=== PATIENT | female | born 1975 | race Hispanic/Latino ===

== ENCOUNTER 2025-01-09 22:30 | Emergency (ER) | payer SELFPAY ==
--- NOTE | ~2025-01-09 | XR_ITS ---
Examination: XR chest 2V Clinical History: chest pain, sob Comparison: None Technique: PA and Lateral Findings: Cardiomediastinal silhouette normal size and configuration. Lungs clear. No acute bony abnormality. Small hiatal hernia. IMPRESSION: 1. No acute cardiopulmonary findings. Reviewed, dictated and finalized at location R.
[2025-01-09 22:34] VITALS: BP 149/90; PULSE 75; RESP 20; TEMP 36.6; O2SAT 94
--- NOTE | 2025-01-09 22:42 | ECG_ITS ---
Test Date: 2025-01-09 22:43:14 Measurements Intervals [place] Rate: 65 P: 22 [place]: 161 QRS: 1 QRSD: 101 T: 7 QT: 398 QTc: 416 Interpretive Statements SINUS RHYTHM CONSIDER INFERIOR INFARCT, AGE INDETERMINATE ABNORMAL ECG No previous ECG available for comparison Electronically Signed On 01-10-2025 05:12:01 CDT by Neymar Allred D.O.
[2025-01-09 22:58] LABS: Hematocrit 40.4 % (37.0-47.0); Hemoglobin 13.6 g/dL (12.0-15.0); Immature Granulocyte Percent A 0.8 % (0-0.5); Lymphocytes Absolute Auto 3.55 K/mm3 (0.9-3.2); Mean Corpuscular HGB Conc 33.7 g/dl (32-36); Mean Corpuscular Hemoglobin 30.6 pg (26-34); Mean Corpuscular Volume 90.8 fl (80-100); Nucleated Red Blood Cells Absolute Auto 0.000 K/mm3 (0.0-0.012); Nucleated Red Blood Cells Perc 0.0 % (0.0-0.2); Platelet Count Result 267 k/mm3 (150-375); Red Blood Count 4.45 M/mm3 (4.2-5.4); White Blood Count 10.9 K/mm3 (4.5-10.0)
[2025-01-09 23:09] LABS: INR 0.9; Prothrombin Time 12.5 Seconds (11.1-14.7)
[2025-01-09 23:10] LABS: Partial Thromboplastin Time 29.4 Seconds (22.3-36.8)
[2025-01-09 23:15] LABS: Alanine Aminotransferase 36 U/L (6-35); Albumin Level 4.5 g/dL (3.5-5.1); Alkaline Phosphatase 85 U/L (38-126); Anion Gap 8 mmol/L (4-12); Aspartate Amino Transferase 50 U/L (14-36); Bilirubin,Total 0.4 mg/dL (0.2-1.3); Blood Urea Nitrogen 14 mg/dL (7-17); Calcium 9.2 mg/dL (8.4-10.2); Carbon Dioxide 23 mmol/L (22-30); Chloride 105 mmol/L (98-107); Estimated CRCL calculation 100 ml/min; Estimated Glomerular Filt Rate > 60; Glucose 100 mg/dL (65-110); Lipase 118 U/L (23-300); Potassium 3.8 mmol/L (3.4-5.0); Sodium 136 mmol/L (137-145); Total Protein 8.0 g/dL (6.3-8.2)
[2025-01-09 23:22] LABS: Troponin I 0.016 ng/mL (0.000-0.034)
[2025-01-10 02:42] VITALS: BP 118/69; PULSE 69; RESP 16
--- NOTE | 2025-01-10 04:39 | ED.CHESTPAIN ---
HPI - Chest Pain General Chief Complaint: Chest Pain Stated Complaint: chest pain radiating to left side, SOB Time Seen by Provider: 01/10/25 04:19 Source: patient Mode of arrival: ambulatory Limitations: language barrier ([place] as 2nd language, [place] -speaking; although easily communications in kyrgyz) History of Present Illness HPI narrative: Patient presents with report of chest pain in particular left-sided chest pain report of pain at her upper ribs. She does not have a primary care physician. She has been short of breath with this. She states this has been present for the past 2-3 weeks although seems to be worsening over past 3 days. She has increased pain with palpation and describes it as a pressure, 5/10 in severity. No cough. No fevers or chills. Denies any underlying respiratory or cardiac issues and has never seen a food and beverage server. Denies any edema. Denies anticoagulation. Patient does report that her symptoms started around the time that she was having sex with her and his body was on hers and put pressure at this area. She has not wanted to have sex with him again since due to this. Cardiac risk factors HTN: 0 HLD: Yes (had been on medicine but Then reports that when it was checked again it was normal so because of this she stops taking this medication anymore) DM: 0 Obese: Yes Smoker:0 Personal history NM/TIA/CVA: 0 Fam Hx NM in first degree relative <65yo:0 Related Data Allergies Allergy/AdvReac Type Severity Reaction Status Date / Time No Known Allergies Allergy Verified 01/09/25 22:37 PMFSH Past Medical History Medical History Obesity Hyperlipidemia Social History Social History Social History: Smoking status: Never smoker Living arrangements: with family Additional living arrangements comments: Exam Narrative: GENERAL: Well-appearing, well-nourished, and in no acute distress. HEAD: Normocephalic, atraumatic. EYES: Non injected, non icteric ENT: Nares clear, no rhinorrhea or epistaxis. Gross auditory acuity intact. NECK: Supple. No meningismus. CHEST: Speaking in full sentences. No respiratory distress. Lungs clear to auscultation without absent or diminished breath sounds particularly on the left. No wheezes or crackles. Patient has reproducible TTP particularly at the junction between left sternum and upper ribs. Otherwise without any obvious bony deformity, subcutaneous emphysema/crepitus HEART: Regular rate and rhythm. . ABDOMEN: Soft, nondistended. EXTREMITIES: Normal range of motion. No bilateral lower extremity edema. SKIN: Warm, dry, no rash. NEURO: No focal deficits. Alert and oriented. Answering questions. Following commands. Normal speech without aphasia or dysarthria. PSYCH: Normal mood and affect. Course Vital Signs Vital signs: Vital Signs Temperature 97.8 F 01/09/25 22:34 Pulse Rate 75 01/09/25 22:34 Respiratory Rate 20 01/09/25 22:34 Blood Pressure 149/90 H 01/09/25 22:34 Pulse Oximetry 94 01/09/25 22:34 Oxygen Delivery Room Air 01/09/25 22:34 Temperature 97.8 F 01/09/25 22:34 Pulse Rate 75 01/10/25 07:43 Respiratory Rate 15 01/10/25 07:43 Blood Pressure 117/75 01/10/25 07:43 Pulse Oximetry 98 01/10/25 07:43 Oxygen Delivery Room Air 01/10/25 06:00 MDM - Chest Pain MDM Narrative Medical decision making narrative: Patient presents with chest pain as well as shortness of breath occurring for the past 2-3 weeks but worsening the past 3 days in particular. She notes that symptoms started around the time of sexual intercourse with her when his body was on hers. In the emergency department she is afebrile with vital signs show mild hypertension. HEART SCORE History 2 highly suspicious 1 moderately suspicious 0 slightly suspicious History score [address] depression/elevation not due to LBBB, LVH, or digoxin [address] depression but LBBB, LVH, nonspecific repolarization changes 0 normal ECG score 0 Age 2 >/= 65 1 45-64 0 <45 Age score 1 Risk factors (HTN, hypercholesterolemia, DM, obesity with BMI >30, current smoker or cessation </=3mo), positive fam hx with parent or sibling with CVD before age 65, atherosclerotic disease (prior NM, PCI/CABG, CVA/TIA, or peripheral arterial disease) 2 >/= 3 risk factors or history of atherosclerotic dz 1 - 1-2 risk factors 0 no known risk factors Risk factor score 1 Initial Troponin 2 >3 times normal limit 1 1-3 times normal limit 0 less than or equal to normal limit Troponin score 0 Total HEART Score 2 PERC Rule Age greater than or equal to 50:0 HR greater than or equal to 100:0 O2 sat room air <95%: Yes ... will obtain D dimer Mild AST and ALT elevation without prior for comparison. Very mild leukocytosis. Repeat troponin is within normal limits and in fact mildly improved from the 1st. D-dimer is within normal limits. Will not pursue further. Viral swab negative. Patient's symptoms are very reproducible in fact even on her own assessment she notes that pressing on the area makes symptoms worse. Discharged with prescriptions for [id number] analgesics medication and advised follow-up in the outpatient setting. Otherwise stable for DC. Differential Diagnosis Differential diagnosis: Likely fracture of rib, pneumothorax, stable angina, unstable angina pectoris, atypical chest pain, st elevation myocardial infarction, costochondritis, chest pain, biliary colic and other (bony contusion; pulmonary contusion) Lab Data Attestation: I reviewed the patient's lab results. 01/09/25 22:50 01/09/25 22:50 Labs: Lab Results 01/09/25 01/10/25 01/10/25 Range/Units 22:50 06:10 06:11 WBC 10.9 H (4.5-10.0) K/mm3 RBC 4.45 (4.2-5.4) M/mm3 Hgb 13.6 (12.0-15.0) g/dL Hct 40.4 (37.0-47.0) % MCV 90.8 (80-100) fl MCH 30.6 (26-34) pg MCHC 33.7 (32-36) g/dl RDW 12.8 (11.5-14.5) % Plt Count 267 (150-375) k/mm3 MPV 10.5 H (7.4-10.4) fl Immature Gran % (Auto) 0.8 H (0-0.5) % Neut % (Auto) 58.2 (45.5-73.1) % Lymph % (Auto) 32.5 (18.3-44.2) % Bullitt % (Auto) 6.3 (2.6-8.5) % Eos % (Auto) 1.8 (0-4.4) % Baso % (Auto) 0.4 (0.2-1.2) % Lymph # (Auto) 3.55 H (0.9-3.2) K/mm3 Bullitt # (Auto) 0.7 H (0.1-0.6) K/mm3 Eos # (Auto) 0.2 (0-0.3) K/mm3 Baso # (Auto) 0.0 (0.0-0.1) K/mm3 Abs Immat Gran (auto) 0.09 H (0.00-0.031) K/mm3 Absolute Neuts (auto) 6.4 (1.3-6.7) K/mm3 Absolute Nucleated RBC 0.000 (0.0-0.012) K/mm3 Nucleated RBC % 0.0 (0.0-0.2) % PT 12.5 (11.1-14.7) Seconds INR 0.9 APTT 29.4 (22.3-36.8) Seconds D-Dimer Cancelled 0.40 Sodium 136 L (137-145) mmol/L Potassium 3.8 (3.4-5.0) mmol/L Chloride 105 (98-107) mmol/L Carbon Dioxide 23 (22-30) mmol/L Anion Gap 8 (4-12) mmol/L BUN 14 (7-17) mg/dL Creatinine 0.54 L (0.7-1.0) mg/dL Estim Creat Clear Calc 100 ml/min Estimated GFR > 60 (59 - ) Glucose 100 (65-110) mg/dL Calcium 9.2 (8.4-10.2) mg/dL Total Bilirubin 0.4 (0.2-1.3) mg/dL AST 50 H (14-36) U/L ALT 36 H (6-35) U/L Alkaline Phosphatase 85 (38-126) U/L Troponin I 0.016 < 0.012 D (0.000-0.034) ng/mL Total Protein 8.0 (6.3-8.2) g/dL Albumin 4.5 (3.5-5.1) g/dL Lipase 118 (23-300) U/L Influenza A (RT-PCR) Negative (Negative) Influenza B (RT-PCR) Negative (Negative) RSV (RT-PCR) Negative (Negative) SARS-CoV-2 RNA (RT-PCR) Negative (Negative) Imaging Data Attestation: I personally reviewed and interpreted this imaging study as follows: My impression: chest x-ray clear my interpretation ECG Data EKG #1: Attestation: I personally reviewed and interpreted this ECG as follows: ECG completion date: 01/09/25 ECG completion time: 22:43 Interpretation: Normal sinus rhythm at a rate of 65 beats per minute. [place] interval 161. QRS 101. QT /QTC 398/416. good R-wave progression across the precordial leads. T-wave inversion in 3 but upright in contiguous inferior leads. No other T-wave inversion. Discharge Plan Discharge Clinical Impression: Chest pain, Shortness of breath, Elevated AST (SGOT), ALT (SGPT) level raised, Costochondritis Patient Disposition: Home Condition: Stable Instructions: Antibiotic Form, Chest Pain (DC), Costochondritis (ED), Shortness of Breath (ED), Transaminitis (ED) Additional Instructions: Because you do not have a primary care physician, the name of the doctors listed below For follow-up. Alternatively, there is a provider that speaks [place] if you prefer though I do not know if they are accepting patients. Her name is Devi Woodruff ([phone]). Your workup today was reassuring although I do believe you would benefit from a cardiology work up in the outpatient setting given your risk is low (but not NO risk). The pain that you described as known as costochondritis. Acetaminophen/Tylenol (maximum 4000 mg per day) is safe to take with NSAIDs (ibuprofen/Motrin) for pain relief. In particular, NSAIDs help with both pain and inflammation so these would be preferred if you are only wanting to take one type of medicine. return to the emergency department any new or worsening symptoms Patient Language: [place] Prescriptions: New acetaminophen 500 mg capsule 1,000 mg PO Q6H PRN (Reason: pain) Qty: 30 0RF ibuprofen 600 mg tablet 600 mg PO TID PRN (Reason: pain) Qty: 30 0RF Follow-up/Referrals: Emeli Montelongo DO [Physician, Family Practice] PHYSICIAN NOT ON STAFF,NONSTAFF [Primary Care Provider] Stand Alone Forms: Work/School Release IP Time of Disposition: 07:19
[2025-01-10 06:00] VITALS: O2SAT 98
[2025-01-10 06:15] VITALS: PULSE 63
[2025-01-10 06:39] VITALS: BP 121/74; PULSE 63; RESP 14; O2SAT 97
[2025-01-10 06:42] LABS: Troponin I < 0.012 ng/mL (0.000-0.034)
[2025-01-10 06:52] LABS: Influenza A QL RT-PCR Negative (Negative); Influenza B QL RT-PCR Negative (Negative); RSV RNA, RT-PCR Negative (Negative); SARS-CoV-2 RNA PCR Negative (Negative)
[2025-01-10] MEDS: ACETAMINOPHEN 500 MG TABLET 1000 MG PO (07:37)
[2025-01-10 07:43] VITALS: BP 117/75; PULSE 75; RESP 15; O2SAT 98
== END 2025-01-10 07:44 | disposition home or self-care (01) ==
PROVIDERS: Emergency Provider Student in an Organized Health Care Education/Training Program
DX: M94.0 Chondrocostal junction syndrome [Tietze] (principal); R06.02 Shortness of breath; R74.01 Elevation of levels of liver transaminase levels; Z20.822 Contact with and (suspected) exposure to COVID-19; E78.5 Hyperlipidemia, unspecified; E66.9 Obesity, unspecified; Z68.33 Body mass index [BMI] 33.0-33.9, adult; R94.31 Abnormal electrocardiogram [ECG] [EKG]
CPT/HCPCS: 36415; 71046; 80053; 83690; 84484; 85025; 85380; 85610; 85730; 87637; 93005; 99284; A9270; J1885